=== PATIENT | female | born 1980 | race African-American/Black ===

== ENCOUNTER 2022-04-18 10:38 | Day surgery (SDC) | payer MEDICAID ==
[~2022-04-18] VITALS: Ht 172.7 cm; Wt 124.7 kg
[~2022-04-18 10:38] MED LIST: ISOVUE-300 (IOPAMIDOL) 100 ML INFUS..BTL IV ONE; LIDOCAINE 2%, 20 ML MDV ONE; NORMAL SALINE 10 ML VIAL ONE; methylPREDNISolone ACETATE 40 MG/ML ONE
[2022-04-18 11:29] LABS: HCG,QUAL RESULT NEGATIVE (NEGATIVE)
[2022-04-18] MEDS ORDERED: DIPHENHYDRAMINE INJ 50 MG/ML VIAL ONE (12:35)
[2022-04-18] MEDS: fentaNYL CITRATE/PF 100 MCG/2 ML AMP ONE ×3 (13:18→13:22)
[2022-04-18] MEDS: MIDAZOLAM HCL 5 MG/5 ML VIAL ONE ×2 (13:18→13:21)
[2022-04-18 18:24] VITALS: BP_SYST 114
== END 2022-04-18 14:31 | disposition home or self-care (01) ==
LOC: SDS 10:38 → SMU 10:39 → SDS 14:31
PROVIDERS: ATTEND Internal Medicine
DX: M51.16 Intervertebral disc disorders with radiculopathy, lumbar region (principal); M50.90 Cervical disc disorder, unspecified, unspecified cervical region; F41.9 Anxiety disorder, unspecified; F32.A Depression, unspecified; Z88.1 Allergy status to other antibiotic agents; Z79.899 Other long term (current) drug therapy; Z20.822 Contact with and (suspected) exposure to COVID-19
CPT/HCPCS: 62323; 87426; 84703; 36415; J1200; J2001; J1030; J2250; J3010; Q9967; 76000